=== PATIENT | female | born 2000 | race Two or more races ===

== ENCOUNTER 2021-07-24 15:50 | Emergency (ER) | payer MEDICAID, OTHER ==
[~2021-07-24] VITALS: Ht 157.5 cm; Wt 61.2 kg
[2021-07-24 16:54] LABS: Basophils # (auto) 0 10 ^3/uL (0-0.2); Basophils % (auto) 0.3 % (0.0-2.0); Eosinophils # (auto) 0 10 ^3/uL (0-0.8); Eosinophils % (auto) 0.6 % (0.0-7.0); Hematocrit 34.6 % (36.0-46.0); Lymphocytes # (auto) 1.3 10 ^3/uL (0.4-5.4); Lymphocytes % (auto) 20.4 % (10.0-50.0); Mean Corpuscular Hemoglobin 27.7 pg (28.0-32.0); Mean Corpuscular Hgb Conc. 34.6 g/dL (32.0-36.0); Mean Corpuscular Volume 80.1 fL (80.0-100.0); Monocytes # (auto) 0.5 10 ^3/uL (0-1.3); Neutrophils # (auto) 4.7 10 ^3/uL (1.6-8.6); Neutrophils % (auto) 71.7 % (37.0-80.0); Red Blood Cells 4.32 10^6/uL (4.0-5.20); Red Cell Distribution Width 15.3 % (11.8-14.3); White Blood Cell 6.6 10^3/uL (4.4-10.8)
[2021-07-24 17:00] LABS: Albumin 3.2 g/dL (3.4-5.0); BUN/Creatinine Ratio 12.3; Calcium 8.6 mg/dL (8.5-10.1); Potassium 3.5 mmol/L (3.5-5.1)
[2021-07-24 17:08] LABS: Bilirubin, Total 0.3 mg/dL (0.2-1.0)
[2021-07-24] MEDS ORDERED: SODIUM CHLORIDE 0.9% 1,000 ML IV ONE (17:45)
[2021-07-24 19:25] LABS: Urine Bacteria FEW /hpf (None Seen); Urine Blood Negative /uL (Negative); Urine Hyaline Cast FEW /lpf (0 - 2); Urine Mucus FEW (None Seen); Urine Specific Gravity 1.006 (1.001-1.035); Urine WBC 1 /hpf (0 - 5)
[2021-07-24] MEDS ORDERED: NITR-87 PO (21:23)
[2021-07-24 21:54] VITALS: BP 100/58
== END 2021-07-24 21:50 | disposition home or self-care (01) ==
LOC: ER 15:50 → EDBD 15:50 → ER 21:50
DX: O23.42 Unspecified infection of urinary tract in pregnancy, second trimester (principal); N39.0 Urinary tract infection, site not specified; S09.90XA Unspecified injury of head, initial encounter; R55 Syncope and collapse; E86.0 Dehydration; Z3A.17 17 weeks gestation of pregnancy; W18.09XA Striking against other object with subsequent fall, initial encounter; Y93.89 Activity, other specified; Y92.89 Other specified places as the place of occurrence of the external cause; Y99.8 Other external cause status
CPT/HCPCS: 36415; 70450; 72125; 76805; 80053; 81001; 83735; 84702; 85025; 87086; 93005; 96360; 99285; J7030

== ENCOUNTER → 2021-09-03 | Outpatient (CLI) | payer MEDICAID ==
[~2021-09-03] MED LIST: NITR-87 PO
[2021-09-03 11:52] LABS: Basophils # (auto) 0 10 ^3/uL (0-0.2); Basophils % (auto) 0.3 % (0.0-2.0); Eosinophils # (auto) 0.1 10 ^3/uL (0-0.8); Eosinophils % (auto) 1.2 % (0.0-7.0); Hematocrit 31.4 % (36.0-46.0); Hemoglobin 10.7 g/dL (12.2-16.2); Lymphocytes % (auto) 29.2 % (10.0-50.0); Mean Corpuscular Hemoglobin 27.9 pg (28.0-32.0); Mean Corpuscular Hgb Conc. 34.2 g/dL (32.0-36.0); Mean Corpuscular Volume 81.6 fL (80.0-100.0); Monocytes # (auto) 0.5 10 ^3/uL (0-1.3); Monocytes % (auto) 7.4 % (0.0-12.0); Neutrophils # (auto) 4.2 10 ^3/uL (1.6-8.6); Neutrophils % (auto) 61.9 % (37.0-80.0); Nucleated Red Blood Cells % 0.1 %; Red Blood Cells 3.84 10^6/uL (4.0-5.20); Red Cell Distribution Width 14.1 % (11.8-14.3); White Blood Cell 6.7 10^3/uL (4.4-10.8)
[2021-09-03 13:51] LABS: Amphetamine Screen, Urine NEGATIVE (NEGATIVE); Barbiturate Scree,Urine NEGATIVE (NEGATIVE); Benzodiazephine Screen, Urine NEGATIVE (NEGATIVE); Cannabinoid Screen, Urine NEGATIVE (NEGATIVE); Cocaine Screen, Urine NEGATIVE (NEGATIVE); Opiate Scree,Urine NEGATIVE (NEGATIVE); Phencyclidine Screen, Urine NEGATIVE (NEGATIVE)
[2021-09-04 06:06] LABS: RPR Non Reactive (Non Reactive)
== END | disposition home or self-care (01) ==
LOC: LAB 10:08
PROVIDERS: ATTEND Obstetrics & Gynecology
DX: Z34.80 Encounter for supervision of other normal pregnancy, unspecified trimester (principal); Z11.3 Encounter for screening for infections with a predominantly sexual mode of transmission; Z31.430 Encounter of female for testing for genetic disease carrier status for procreative management; Z36.0 Encounter for antenatal screening for chromosomal anomalies; N39.0 Urinary tract infection, site not specified
CPT/HCPCS: 36415; 80307; 83036; 84112; 84144; 85025; 86592; 86703; 86762; 86850; 86900; 86901; 87086; 87340

== ENCOUNTER 2024-11-14 14:00 | Emergency (ER) | payer MEDICAID ==
[~2024-11-14] VITALS: Ht 152.4 cm; Wt 58.0 kg
--- NOTE | 2024-11-14 14:27 | ED.PDOC ---
HPI Allergic reaction HPI Comments [age] Year old female presents to the ED for the chief complaint of a diffuse skin rash/possible allergic reaction with the associated itching. Patient states that she ate notch shows from a local gas station on the way back to work, and immediately started feeling itchy and developing diffuse hives. therapies tried none, Patient denies any shortness of breath, drooling, or any other associated modifiers are factors at this time. Denies that the rash is painful, just itchy Denies ever having this before Patient denies any fever, cough, difficulty swallowing, or shortness of breath Denies fever chills night sweats nausea vomiting diarrhea Denies persistent loss of appetite nor unintentional weight loss over the past 3 months Denies history of STI Denies cough and cold-like symptoms Denies recent travel Denies sick contact with similar rash Denies new topical creams/lotions/shampoos/detergents Denies noticing any insects Denies bruising bleeding anywhere Denies chronic skin issues or family history of skin issues Chief Complaint: Rash Time Seen by MD: 14:22 Primary Care Provider: UNK Reviewed Notes: Nurses Notes, Medications, Allergies Allergies: Coded Allergies: NO KNOWN ALLERGIES (Unverified , 07/24/21) Home Meds Active Scripts Nitrofurantoin Monohydrate Mac (Macrobid) 100 Mg Cap, 100 MG PO BID for 7 Days, #14 CAP Prov:ALEXIALBERTINA DO 07/24/21 Information Source: Patient Mode of Arrival: Ambulatory Severity: Moderate Rash: Moderate SOB: None Difficulty swallowing: None Pruritus: None Timing: Hours Duration: Intermittent, Hours Prehospital treatment: None Location: Abdomen, Arm, Back, Buttock, Chest, Extremities, Face, Generalized, Leg, Neck, Pelvis Exposed to: Food Developed: Rash History of: None Modyifying Factors: None Associated Sign and Symptoms: None Past Medical History PAST MEDICAL HISTORY: Denies Surgical History: Denies all surgeries PASTEURIZER HELPER History: No Pertinent PASTEURIZER HELPER History Family History Family History: Reviewed,noncontributory to illness Social History Smoker: Non-Smoker Alcohol: Denies ETOH Use Drugs: Denies Drug Use Lives In: Home Constitutional: denies: chills, diaphoresis, fatigue, fever, malaise, sweats, weakness, others EENTM: denies: blurred vision, double vision, ear bleeding, ear discharge, ear drainage, ear pain, ear ringing, eye pain, eye redness, hearing loss, mouth pain, mouth swelling, nasal discharge, nose bleeding, nose congestion, nose pain, photophobia, tearing, throat pain, throat swelling, voice changes, others Respiratory: denies: cough, hemoptysis, orthopnea, SOB at rest, shortness of breath, SOB with excertion, stridor, wheezing, others Cardiovascular: denies: chest pain, dizzy spells, diaphoresis, Dyspnea on exertion, edema, irregular heart beat, left arm pain, lightheadedness, palpitations, PND, syncope, others Gastrointestinal: denies: abdomen distended, abdominal pain, blood streaked bowels, constipated, diarrhea, dysphagia, difficulty swallowing, hematemesis, melena, nausea, poor appetite, poor fluid intake, rectal bleeding, rectal pain, vomiting, others Genitourinary: denies: abnormal vagina bleeding, burning, dyspareunia, dysuria, flank pain, frequency, hematuria, incontinence, pain, , vagina discharge, urgency, others Neurological: denies: dizziness, fainting, headache, left sided numbness, left sided weakness, numbness, paresthesia, pre-existing deficit, right sided numbness, right sided weakness, seizure, speech problems, tingling, tremors, weakness, others Musculoskeletal: denies: back pain, gout, joint pain, joint swelling, muscle pain, muscle stiffness, neck pain, others Integumetry: reports: rash; denies: bruises, change in color, change in hair/nails, dryness, laceration, lesions, lumps, wounds, others Allergic/Immunocompromised: denies: Difficulty Healing, Frequent Infections, Hives, Itching, others Hematologic/Lymphatic: denies: anemia, blood clots, easy bleeding, easy bruising, swollen glands, others Endocrine: denies: excessive hunger, excessive sweating, excessive thirst, excessive urination, flushing, intolerance to cold, intolerance to heat, unexplained weight gain, unexplained weight loss, others Psychiatric: denies: anxiety, bipolar disorder, depression, hopeless, panic disorder, schizophrenia, sleepless, suicidal, others All Other Systems: Reviewed and Negative Physical Exam General Appearance: Mild Distress, Normal, Obese HEENT: Normal ENT Inspection, Pharynx Normal, TMs Normal Neck: Full Range of Motion, Non-Tender, Normal, Normal Inspection Respiratory: Chest Non-Tender, Lungs Clear, No Accessory Muscle Use, No Respiratory Distress, Normal Breath Sounds, Other (Uvula midline, moist mucous membranes, no respiratory distress, no strawberry red tongue, no drooling) Cardiovascular: No Edema, No JVD, No Murmur, No Gallop, Normal Peripheral Pulses, Regular Rate/Rhythm Breast Exam: Deferred Gastrointestinal: No Organomegaly, Non Tender, No Pulsatile Mass, Normal Bowel Sounds, Soft Genitalia: Deferred Pelvic: Deferred Rectal: Deferred Extremities: No calf tenderness, Normal capillary refill, Normal inspection, Normal range of motion, Non-tender, No pedal edema Musculoskeletal : Apperance: Normal Neurologic: Alert, plasterer helper II-XII nml as Tested, No Motor Deficits, Normal Affect, Normal Mood, No Sensory Deficits Cerebellar Function: Normal Reflexes: Normal Skin: Dry, Normal Color, Rash (Scattered hives) Lymphatic: No Adenopathy Was a procedure done? Was a procedure done?: No Differential diagnosis (all) Differential Diagnosis: Anaphylaxis, Bronchospasm, Drug Reaction, Hypotension, Respiratory Failure, Shock X-Ray, Labs, Meds, VS Vital Signs Date Time Temp Pulse Resp B/P (MAP) Pulse Ox O2 Delivery O2 Flow Rate FiO2 11/14/24 14:00 98.3 118 20 142/80 97 98.3 X-Ray, Labs, Meds, VS Comment [age] Year old female presents to the ED for the chief complaint of a diffuse skin rash/possible allergic reaction with the associated itching. Patient arrives alert and oriented, ABC's intact, afebrile, vital signs stable, saturating well in room air Peripheral IV insertion+ labs were ordered. Diagnostic imaging ordered by me and results interpreted by radiology : Labs in the ED showed (pertinent+ and then pertinent-) Patient was given: Methylprednisolone, famotidine, Benadryl IV _. Tolerated medications with no adverse reaction. Exam and history consistent with uticaria/allergic reaction Dexamethasone 10 mg IM ordered for symptoms Patient tolerated well, no adverse drug reactions noted No signs of anaphylaxis or angioedema Reviewed potential triggers, including viral infection, food or environmental exposures, new medications (NSAIDs progesterone), insect bites latex, cold exposures, sunlight No joint pains, fevers or lymphadenopathy to consider serum sickness or SLE Informed patient second encounter with allergy could cause more severe and life- threatening symptoms such as shortness of breath and difficulty breathing Patient verbalized understanding EpiPen prescribed. Education provided on possible side effects of medication Recommended antihistamines as needed ED precautions discussed including angioedema, vomiting, abdominal pain or difficulty breathing . Pt presents ED for an allergic reaction. Solu-Medrol and Pepcid administered in ED for treatment. Patient reports significant improvement in symptoms following treatment. Patient was monitored in the ED for an extended amount of time. Medrol Dosepak prescribed for additional treatment. EpiPen prescribed. Education provided on possible side effects of medication Patient was instructed to take hydroxyzine and use calamine lotion as needed for itchiness Follow-up with PCP in 1 to 2 days. 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 Patient is stable for discharge at this time. External notes reviewed. Test results and diagnostic imaging interpreted. All diagnostic findings, discharge care, education and instructions provided Follow-up with PCP in 2 to 3 days Patient verbalized understanding and agreed to treatment plan Vital signs stable, afebrile, no acute distress noted Patient ambulatory with strong steady gait Advised to return precautions for any new or worsening symptoms, return to ER immediately for re-evaluation Patient is aware that the purpose of this visit was for an acute medical emergency requiring emergent stabilization. Chronic conditions, including malignancies have not been ruled out. Patient is instructed to follow up with PCP as directed and discharge instructions for continued care and workup. If unable to arrange follow-up, patient is to return to the emergency department for reassessment. Patient (parent or legal guardian if applicable) was given verbal and written discharge instructions and acknowledges understanding. Additional MDM Review of External, Non-ED records: External records reviewed. Discussion with independent historian (EMS, family) history obtained from the patient/parents (if applicable) at bedside Chronic conditions affecting care: None Social determinants of health affecting care: None Time of 1ST Reevaluation: 14:53 Reevaluation 1ST: Unchanged Patient Education/Counseling: Diagnosis, Treatment, Need For Follow Up Family Education/Counseling: No Family Present SEPSIS Sepsis Screen Date sepsis recognized/suspect: Nov 14, 2024 Time Sepsis recognized/suspect: 1400 Recent Procedure: No On Antibiotic Therapy: No Respiratory Rate >20: No Heart Rate >90: No Temp<36 C (96.8 F) or >38.3 C: No SBP <90 or MAP <65 mmHG: No New Acute Mental Status Change: No Is the patient on CPAP, BIPAP,: No Physician Orders Heplock Iv (11/14/24 ) Vital Signs Date Time Temp Pulse Resp B/P (MAP) Pulse Ox O2 Delivery O2 Flow Rate FiO2 11/14/24 14:00 98.3 118 20 142/80 97 98.3 Departure 1 Departure Time of Disposition: 16:30 Impression: Primary Impression: Allergic reaction Qualified Codes: T78.40XA - Allergy, unspecified, initial encounter Disposition: HOME / SELF CARE / HOMELESS Condition: Stable e-Prescriptions Loratadine (Loratadine) 10 Mg Tab 10 MG PO DAILY for 10 Days, #10 TAB 0 Refills Prov: JOCELYN PEREZ NP 11/14/24 Hydroxyzine Hcl (Hydroxyzine Hcl) 25 Mg Tab 1 TAB PO TIDPRN PRN for 10 Days, #30 TAB 0 Refills Prov: JOCELYN PEREZ NP 11/14/24 Prednisone (Prednisone) 20 Mg Tab 60 MG PO DAILY for 5 Days, #15 TAB 0 Refills Prov: JOCELYN PEREZ NP 11/14/24 Discharged With: Relative (Father) Critical Care Note Critical Care Time?: No Stability Stability form required: No Heart Score Heart Score: Heart Score Response (Comments) Value History N/A 0 EKG N/A 0 Age N/A 0 Risk Factors N/A 0 Troponin N/A 0 Total 0 I personally scribed for JOCELYN PEREZ NP ([email or web address]) on 11/14/24 at 14:27. E lectronically submitted by Hong Reed ([email or web address]). I personally scribed for JOCELYN PEREZ NP ([email or web address]) on 11/14/24 at 14:29. E lectronically submitted by Hong Reed ([email or web address]). I personally scribed for JOCELYN PEREZ NP ([email or web address]) on 11/14/24 at 14:30. E lectronically submitted by Hong Reed ([email or web address]). JOCELYN PEREZ NP Nov 14, 2024 14:27
[2024-11-14] MEDS ORDERED: LORA-1126 PO (16:32)
[2024-11-14] MEDS ORDERED: PRED20TA2 PO (16:32)
[2024-11-14] MEDS ORDERED: HYDR-3682 PO (16:32)
[2024-11-14 17:21] VITALS: BP 110/89; PULSE 114; RESP 24; TEMP 99.1; O2SAT 96
[2024-11-14] MEDS: diphenhdrAMINE HCL 50 MG/1 ML VL IV ONE (17:27)
[2024-11-14] MEDS: FAMOTIDINE (10MG/ML) 2ML VL IV ONE (17:28)
[2024-11-14] MEDS: methylPREDNISolone SOD SUCC 125 MG/2 ML VL IV ONE (17:28)
== END 2024-11-14 17:42 | disposition home or self-care (01) ==
LOC: ER 14:00
DX: T78.40XA Allergy, unspecified, initial encounter (principal); Z79.899 Other long term (current) drug therapy; X58.XXXA Exposure to other specified factors, initial encounter
CPT/HCPCS: 96374; 96375; 99284; J1200; J2919; J3490